=== PATIENT | male | born 1975 | race African-American/Black ===

== ENCOUNTER 2017-11-17 16:29 | Emergency (ER) | payer OTHER ==
--- NOTE | 2017-11-17 17:12 | PDOC ---
Rapid Medical Evaluation Time Seen by Provider: 11/17/17 17:11 Medical Evaluation: Allergies Allergy/AdvReac Type Severity Reaction Status Date / Time shellfish derived Allergy Severe ANAPHYLAXIS Verified 10/11/14 09:05 Penicillins Allergy Rash Verified 10/11/14 09:04 SHRIMP Allergy Difficulty Uncoded 10/11/14 09:04 Breathing 11/17/17 17:11 Patient had a brief in-person assessment of this patient The patient presents with a chief complaint of: bee sting Friday. Now with itching and pain. Took one benadryl yesterday. Pertinent physical findings are: NAD even and unlabored breathing right forearm with swelling and redness I have ordered the following: This patient will proceed to the ED for further evaluation. 11/17/17 17:18
[2017-11-17 17:20] VITALS: BP 180/114; PULSE 98; TEMP 99; BMI 36.8
[2017-11-17] MEDS ORDERED: DEXAMETHASONE LIQUID 0.5 MG/5 ML 240 ML BULK BOTTLE PO ONE (17:45)
--- NOTE | 2017-11-17 17:48 | PDOC ---
History of Present Illness - General Chief Complaint: Bite Stated Complaint: BEE STING Time Seen by Provider: 11/17/17 17:11 - History of Present Illness Initial Comments: 42-year-old male with a past medical history significant for hypertension he takes hydrochlorothiazide, presents for evaluation of a bee or wasp sting on the volar aspect of his right forearm. He states his sting happened about 2 days ago. He has some localized discomfort swelling and itching. 11/17/17 17:46 Past History - Past Medical History Allergies/Adverse Reactions: Allergies Allergy/AdvReac Type Severity Reaction Status Date / Time shellfish derived Allergy Severe ANAPHYLAXIS Verified 11/17/17 17:14 Penicillins Allergy Rash Verified 11/17/17 17:14 SHRIMP Allergy Difficulty Uncoded 11/17/17 17:14 Breathing Home Medications: Ambulatory Orders NK [No Known Home Medication] 11/17/17 COPD: No HTN: Yes Hypercholesterolemia: Yes - Suicide/Smoking/Psychosocial Hx Smoking Status: No Smoking History: Never smoked Number of Cigarettes Smoked Daily: 0 Hx Alcohol Use: No Drug/Substance Use Hx: No Substance Use Type: None Review of Systems - Review of Systems Integumentary: Yes: See HPI All Other Systems: Reviewed and Negative *Physical Exam - Vital Signs Last Vital Signs Temp Pulse Resp BP Pulse Ox 99 F 98 H 18 180/114 99 11/17/17 17:15 11/17/17 17:15 11/17/17 17:15 11/17/17 17:15 11/17/17 17:15 - Physical Exam Comments: HEAD: NC/AT EYES: Conjuntiva clear Ears: Canals and TM's normal NOSE: No d/c THROAT: Moist mucous membrances, oral pharanx clear, uvula midline NECK: Supple without adenopathy CARDIAC: S1 S2 LUNGS: CTA Full and Equal breath sounds ABDOMEN: Soft NT ND MS: Full ROM in all joints without edema NEUROLOGIC: No gross sensory or motor deficits, NVID SKIN: There is mild erythema without fluctuance or induration on the volar aspect of the right forearm. There is no sensitivity. There are no gross sensorimotor deficits in the right upper extremity or in any extremity. 11/17/17 17:46 Medical Decision Making - Medical Decision Making This is a localized reaction to insect sting I will give him a dose of Decadron any continue home Benadryl. I've instructed him on the use of warm compresses. With instructions to return to the emergency room should symptoms worsen or go unresolved. 11/17/17 17:47 *DC/Admit/Observation/Transfer Diagnosis at time of Disposition: Bee sting - Discharge Dispostion Disposition: HOME Condition at time of disposition: Stable Decision to Admit order: No - Referrals Referrals: Beau Alcaraz MD [Staff Physician] - Jori Milligan MD [Staff Physician] - - Patient Instructions Printed Discharge Instructions: DI for Insect Bites and Stings Additional Instructions: Apply warm compresses to the area 5-6 times a day. If symptoms worsen and there is increased redness swelling or any there is any drainage from the site come back to the emergency room otherwise follow-up with your primary care physician once 2 days. He'll given a dose of steroids in the emergency room it will help with the swelling and itching. You can continue the Benadryl as directed. Follow -up with the primary care physician in one to 2 days - Post Discharge Activity
[2017-11-17] MEDS ORDERED: DEXAMETHASONE SOD PHOSPHATE 10 MG/1 ML VIAL ONE (17:50)
== END 2017-11-17 17:59 | disposition home or self-care (01) ==
LOC: JERFT 16:29 → JER 16:29 → JERFT 17:59
DX: S50.861A Insect bite (nonvenomous) of right forearm, initial encounter (principal); W57.XXXA Bitten or stung by nonvenomous insect and other nonvenomous arthropods, initial encounter; Y93.89 Activity, other specified; Y92.9 Unspecified place or not applicable; I10 Essential (primary) hypertension; E78.5 Hyperlipidemia, unspecified
CPT/HCPCS: 99281-25

== ENCOUNTER 2018-09-12 14:38 | Emergency (ER) | payer OTHER ==
[2018-09-12 14:57] VITALS: BMI 38.6
[2018-09-12] MEDS ORDERED: COLCHICINE 0.6 MG CAP PO ONE ×2 (16:37→18:40)
--- NOTE | 2018-09-12 16:37 | PDOC ---
History of Present Illness - General Chief Complaint: Pain Stated Complaint: LT ANKLE INJURY History Source: Patient Exam Limitations: No Limitations - History of Present Illness Initial Comments: 09/12/18 16:28 Patient is a 43 year male with h/o gout, HTN c/o left foot pain x 3 weeks. States that had beers and alcohol 3 weeks ago, then 2 days after started to have pain and swelling in his left foot around the ankle. States that this felt his gout symptoms, so he has been trying over the counter medication at home and change diet, and has lost 18 pounds in the 3 weeks in efforts to relieve the symptoms without improvement. States he hasn't eaten beef for past 14 years. States he has been having difficulty walking and so went to urgent care 2 days ago for an evaluation. He was placed on steroids but stopped the medication shortly after due to increase in his heart rate. He denies any fever , chills, chest pain, shortness of breath. Denies any injury to his leg , does not have a sedimentary lifestyle. Family history negative for PE or DVT. Patient states he was diagnosed with gout many years ago by a primary care doctor, who he currently does not see. He has never had a further evaluation. PMHX: as above PSOCHX: occ etoh, neg cig, neg drug ALL: NKDA GENERAL/CONSTITUTIONAL: No fever or chills. No weakness. No weight change. HEAD, EYES, EARS, NOSE AND THROAT: No change in vision. No ear pain or discharge. No sore throat. CARDIOVASCULAR: No chest pain or shortness of breath. RESPIRATORY: No cough, wheezing, or hemoptysis. GASTROINTESTINAL: No nausea, vomiting, diarrhea or constipation. No rectal bleeding. GENITOURINARY: No dysuria, frequency, or change in urination. MUSCULOSKELETAL: (+) joint or muscle swelling or pain. No neck or back pain. SKIN AND BREASTS: No rash or easy bruising. NEUROLOGIC: No headache, vertigo, loss of consciousness, or loss of sensation. PSYCHIATRIC: No depression or anxiety. ENDOCRINE: No increased thirst. No abnormal weight change. HEMATOLOGIC/LYMPHATIC: No anemia, easy bleeding, or history of blood clots. ALLERGIC/IMMUNOLOGIC: No hives or skin allergy. No latex allergy. GENERAL: The patient is awake, alert, and fully oriented, in no acute distress. HEAD: Normal with no signs of trauma. EYES: Pupils equal, round and reactive to light, extraocular movements intact, sclera anicteric, conjunctiva clear. ENT: Ears normal, nares patent, oropharynx clear without exudates. Moist mucous membranes. NECK: Normal range of motion, supple without lymphadenopathy, JVD, or masses. LUNGS: Breath sounds equal, clear to auscultation bilaterally. No wheezes, and no crackles. HEART: Regular rate and rhythm, normal S1 and S2 without murmur, rub. ABDOMEN: Soft, nontender, normoactive bowel sounds. No guarding, no rebound. No masses. EXTREMITIES: Normal range of motion, (+) edema left foot, no clubbing or cyanosis. No cords, (+)erythema, tenderness around the ankles. neg homen's sign, nontender plantar aspect left foot. NEUROLOGICAL: Cranial nerves II through XII grossly intact. Normal speech, normal gait. PSYCH: Normal mood, normal affect. SKIN: Warm, Dry, normal turgor, no rashes or lesions noted. Past History - Past Medical History Allergies/Adverse Reactions: Allergies Allergy/AdvReac Type Severity Reaction Status Date / Time shellfish derived Allergy Severe ANAPHYLAXIS Verified 09/12/18 14:57 Penicillins Allergy Rash Verified 09/12/18 14:57 SHRIMP Allergy Difficulty Uncoded 09/12/18 14:57 Breathing Home Medications: Ambulatory Orders Amlodipine Besylate [Norvasc -] 5 mg PO DAILY #30 tablet 09/12/18 Colchicine 0.6 mg PO TID #10 capsule 09/12/18 Hydrochlorothiazide 0 mg PO DAILY 09/12/18 COPD: No HTN: Yes Hypercholesterolemia: Yes - Suicide/Smoking/Psychosocial Hx Smoking Status: No Smoking History: Never smoked Have you smoked in the past 12 months: No Number of Cigarettes Smoked Daily: 0 Information on smoking cessation initiated: No Hx Alcohol Use: No (past) Drug/Substance Use Hx: No Substance Use Type: None *Physical Exam - Vital Signs Last Vital Signs Temp Pulse Resp BP Pulse Ox 98.3 F 92 H 18 175/116 H 98 09/12/18 14:53 09/12/18 14:53 09/12/18 14:53 09/12/18 14:53 09/12/18 14:53 Medical Decision Making - Medical Decision Making 09/12/18 16:28 Patient is a 43 year male with h/o gout, HTN c/o left foot pain x 3 weeks. States that had beers and alcohol 3 weeks ago, then 2 days after started to have pain and swelling in his left foot around the ankle. States that this felt his gout symptoms, so he has been trying over the counter medication at home and change diet, and has lost 18 pounds in the 3 weeks in efforts to relieve the symptoms without improvement. States he hasn't eaten beef for past 14 years. States he has been having difficulty walking and so went to urgent care 2 days ago for an evaluation. He was placed on steroids but stopped the medication shortly after due to increase in his heart rate. He denies any fever , chills, chest pain, shortness of breath. Denies any injury to his leg , does not have a sedimentary lifestyle. Family history negative for PE or DVT. Patient states he was diagnosed with gout many years ago by a primary care doctor, who he currently does not see. He has never had a further evaluation. DDX: Gout, DVT, heel spur, plantar fasciitis, Uric acid, colchicine 1.2 mg po Ultrasound Doppler left leg, x-ray left foot Reassess 09/12/18 18:03 Uric acid is rated 7.5 09/12/18 18:04 X-ray foot spurs Patient continues to have elevated blood pressure will give Norvasc since HCTZ could be contraindicated in gout. 09/12/18 18:32 Patient Full Name: BRITTANY MONTEZ Patient Accession No: [id number] Patient : 1975 Reason for Exam: foot pain and swelling h/o gout no relief from meds Referring Physician: Patient Name: MELIDA SOTO THIS IS A PRELIMINARY REPORT FROM [facility] DATE OF SERVICE: 2018-09-12 17:21:38 IMAGES: 21 Exam: Left lower extremity venous Doppler sonogram. Clinical indication: Left foot pain and swelling. Findings There is normal compression, augmentation, and spontaneous color Doppler flow demonstrated from the left calf through to the left common femoral vein inclusive. Impression: No left lower extremity DVT. THIS DOCUMENT HAS BEEN ELECTRONICALLY SIGNED Ruben Brady MD 09/12/2018 17:15 [employer] M.D. Please call [facility] [phone] ([phone]) with questions. INTERPRETING RADIOLOGIST: Ruben Brady MD Electronically Signed: Sep 12, 2018 06:16PM EDT. Patient still continues to have symptoms after colchicine. We'll give her shot of Toradol 30 mg IM. 09/12/18 19:53 Patient feels improved pain is subsided. I discussed the physical exam findings, ancillary test results and final diagnoses with the patient. I answered all of the patient's questions. The patient was satisfied with the care received and felt comfortable with the discharge plan and treatment plan. The Patient agrees to follow up with the primary care physician within 24-72 hours. *DC/Admit/Observation/Transfer Diagnosis at time of Disposition: Gout attack Qualifiers: Gout site: ankle Gout etiology: unspecified cause Laterality: left Qualified Code(s): M10.9 - Gout, unspecified - Discharge Dispostion Disposition: HOME Condition at time of disposition: Stable - Prescriptions Prescriptions: Amlodipine Besylate [Norvasc -] 5 mg PO DAILY #30 tablet Colchicine 0.6 mg PO TID #10 capsule - Referrals Referrals: Naveed Muhammad MD [Staff Physician] - - Patient Instructions Printed Discharge Instructions: DI for Gout Additional Instructions: Your Discharge Instructions: You must call primary care physician within 24 hours to arrange follow-up. Return to the Emergency Department with any new, persistent or worsening symptoms, for fever, chills, SOB, dizziness or any other concerning changes that may occur. continue advil for pain. Take the colchicine every 2 hours until symptoms subside or diarrhea or upset stomach. Call PMD for appointment and referral for rheumatology. - Post Discharge Activity
[2018-09-12] MEDS ORDERED: COLCHICINE 0.6 MG CAP ONE ×2 (17:03→18:44)
--- NOTE | 2018-09-12 17:20 | PDOC ---
*Physical Exam - Vital Signs Last Vital Signs Temp Pulse Resp BP Pulse Ox 98.3 F 92 H 18 175/116 H 98 09/12/18 14:53 09/12/18 14:53 09/12/18 14:53 09/12/18 14:53 09/12/18 14:53 Medical Decision Making - Medical Decision Making 09/12/18 17:18 43 yo M presenting with a complaint of swelling in the left ankle Pain with walking Three weeks ago, had a few beers Pain began 2 days after that He has changed his diet was seen at Urgent care, given steroids But he could not tolerate this Pain has continued which has prompted his ER visit 09/12/18 17:31 duplex - negative Labs - Uric acid high will give colchicine and analgesia Re Assess 09/12/18 19:01 Toradol for pain Will discharge to home Follow up with PMD Agree with plan per LORENA Lambert Clinical impression: gout flair, initial presentation Hypertension, initial presentation *DC/Admit/Observation/Transfer Diagnosis at time of Disposition: Gout attack - Discharge Dispostion Disposition: HOME Condition at time of disposition: Stable - Prescriptions Prescriptions: Amlodipine Besylate [Norvasc -] 5 mg PO DAILY #30 tablet Colchicine 0.6 mg PO TID #10 capsule - Referrals Referrals: Naveed Muhammad MD [Staff Physician] - - Patient Instructions Printed Discharge Instructions: DI for Gout Additional Instructions: Your Discharge Instructions: You must call primary care physician within 24 hours to arrange follow-up. Return to the Emergency Department with any new, persistent or worsening symptoms, for fever, chills, SOB, dizziness or any other concerning changes that may occur. continue advil for pain. Take the colchicine every 2 hours until symptoms subside or diarrhea or upset stomach. Call PMD for appointment and referral for rheumatology. - Post Discharge Activity
[2018-09-12] MEDS ORDERED: amLODIPine BESYLATE 5 MG TABLET (FP) PO ONE (18:08)
[2018-09-12 18:10] VITALS: TEMP 97.3
[2018-09-12] MEDS ORDERED: amLODIPine BESYLATE 5 MG TABLET (FP) ONE (18:11)
[2018-09-12] MEDS ORDERED: KETOROLAC TROMETHAMINE 30 MG/1 ML VIAL IM ONE (18:35)
[2018-09-12] MEDS ORDERED: KETOROLAC TROMETHAMINE 30 MG/1 ML VIAL ONE (18:44)
[2018-09-12 19:37] VITALS: BP 147/83; PULSE 97
== END 2018-09-12 20:14 | disposition home or self-care (01) ==
LOC: JER 14:38
PROC: 3E0233Z Introduction of Anti-inflammatory into Muscle, Percutaneous Approach (ICD-10-PCS; principal; 2018-09-12)
DX: M10.9 Gout, unspecified (principal); I10 Essential (primary) hypertension
CPT/HCPCS: 36415; 73630-TC-LT; 84550; 93971-TC; 96372; 99282-25